=== PATIENT | female | born 1970 | race American Indian/Alaskan Native ===

== ENCOUNTER 2020-04-07 08:20 | Outpatient (CLI) | payer OTHER ==
--- NOTE | 2020-04-08 14:44 | Mammography Report ---
DIGITAL SCREENING MAMMOGRAM WITH TOMOSYNTHESIS WITH CAD, 04/07/2020 CLINICAL INFORMATION / INDICATION: Routine Screening Mammography. TECHNIQUE: Digital bilateral 2D and 3D mammography with tomosynthesis was obtained in the craniocaud al and mediolateral oblique projections. Computer-Aided Detection (CAD) analysis was used for interp retation of this study. COMPARISON: 05/18/2018, 05/16/2019 FINDINGS: Breast Density: There are scattered areas of fibroglandular density. No dominant mass, suspicious calcifications, or architectural distortion in either breast. No interval change. IMPRESSION: No mammographic evidence of malignancy. Follow up recommendation: Routine yearly BI-RADS Category 1: Negative. A "normal" or negative report should not discourage follow up or biopsy of a clinically significant f inding. A written summary of these findings will be mailed to the patient. The patient will be entered into a mammography reporting system which will generate a reminder letter for the patient's next appointmen t at the appropriate interval. The [employer] recommends yearly mammograms starting at age 40 and continuing as l eduardo as a woman is in good health. Breast MRI is recommended for women with an approximate 20-25% or greater lifetime risk of breast cancer, including women with a strong family history of breast or ova haylee cancer or who have been treated for Hodgkin's disease. Signer Name: Talia Luo MD Signed: 04/08/2020 2:40 PM Workstation Name: [id number]
== END 2020-04-07 08:21 | disposition home or self-care (01) ==
LOC: SPVWC 08:20
PROVIDERS: ATTEND Surgery
DX: Z12.31 Encounter for screening mammogram for malignant neoplasm of breast (principal); N64.4 Mastodynia
CPT/HCPCS: 77063; 77067